=== PATIENT | male | born 1975 | race Two or more races ===

== ENCOUNTER 2020-07-13 04:17 | Day surgery (SDC) | payer BC, OTHER ==
[2020-07-11 17:34] VITALS: BMI 39.1
[2020-07-13] MEDS ORDERED: ROPIVACAINE HCL 0.5% 30ML VIAL ONE (07:03)
[2020-07-13] MEDS ORDERED: LIDOCAINE HCL/PF 2% SDV 5ML VIAL ONE (07:27)
[2020-07-13] MEDS ORDERED: ceFAZolin SODIUM 1 GM VIAL ONE ×2 (07:27→10:45)
[2020-07-13] MEDS ORDERED: EPHEDRINE SULFATE/0.9% NACL/PF 50 MG/10 ML SYRINGE NR ONE (07:27)
[2020-07-13] MEDS ORDERED: LIDOCAINE HCL 2% JELLY (5 ML/TUBE) ONE (07:27)
[2020-07-13] MEDS ORDERED: PROPOFOL 20 ML ONE ×3 (07:27→09:12)
[2020-07-13] MEDS ORDERED: ONDANSETRON 4 MG/2 ML VIAL ONE (07:27)
[2020-07-13] MEDS ORDERED: SUCCINYLCHOLINE CHLORIDE 200 MG/10 ML SYRINGE ONE (07:27)
[2020-07-13] MEDS ORDERED: MIDAZOLAM HCL 2 MG/2 ML SINGLE DOSE VIAL ONE ×4 (07:28→07:29)
--- NOTE | 2020-07-13 08:04 | HP ---
Satellite [facility] - Chief Complaint Chief Complaint: right knee pain - Past Medical History Allergies/Adverse Reactions: Allergies Allergy/AdvReac Type Severity Reaction Status Date / Time No Known Drug Allergies Allergy Verified 07/13/20 06:57 - Current Medications Current Medications: Home Medications Medication Instructions Recorded Albuterol Sulfate Inhaler - 1 puff IH PRN PRN 07/11/20 [Ventolin HFA Inhaler -] Hydrochlorothiazide [Hctz -] 25 mg PO DAILY 07/11/20 Losartan Potassium 50 mg PO DAILY 07/11/20 Nebivolol HCl [Bystolic] 10 mg PO DAILY 07/11/20 Oxycodone HCl/Acetaminophen 1 - 2 tab PO Q6H #30 tab MDD 6 07/13/20 [Percocet 5-325 mg Tablet] Satellite Physical Exam - Physical Examination Vital Signs: Vital Signs Period Temp Pulse Resp BP Sys/Lake Pulse Ox Last 24 Hr 98.0 F 65 16 144/95 97 General Appearance: Well Nourished, Well Developed, Alert & Oriented x3 ENT: Clear Lung: Normal air movement Extremities: Other (right knee- +swelling, + ttp, decr rom, + ovi, + ant draw, + pivot, nvi) Neurological: Intact, Alert, Oriented Satellite Impression/Plan - Impression/Plan Impression: right knee internal derangement Operative Procedure: right knee arthroscopy with ACL reconstruction Date to be Performed: 07/13/20
[2020-07-13] MEDS ORDERED: ceFAZolin 2 GRAM PREMIX BAG IVPB ONE ×2 (08:20→09:50)
[2020-07-13] MEDS ORDERED: ONDANSETRON 4 MG/2 ML VIAL IVPUSH PRN (08:40)
[2020-07-13] MEDS ORDERED: oxyCODONE HCL 5 MG TABLET PO PRN ×2 (08:40)
[2020-07-13] MEDS ORDERED: LACTATED RINGERS SOLUTION 1,000 ML IV SCH (08:45)
--- NOTE | 2020-07-13 09:53 | OP ---
Operative Note - Note: Operative Date: 07/13/20 ([facility]) Pre-Operative Diagnosis: right knee internal derangement Operation: right knee arthroscopy with ACL reconstruction using graftlink allograft Post-Operative Diagnosis: Same as Pre-op Surgeon: Shmuel Douglass Loss Prevention Lead: Moshe Weller Anesthesia: General, Local Specimens Removed: shavings Estimated Blood Loss (mls): 5
[2020-07-13] MEDS ORDERED: CEFAZOLIN 2 GM/D5W 2 GM/50 ML ML IVPB ONE (10:00)
--- NOTE | 2020-07-13 11:09 | SPEC ---
DATE OF OPERATION: 07/13/2020 PREOPERATIVE DIAGNOSIS: Right anterior cruciate ligament tear. POSTOPERATIVE DIAGNOSIS: Right anterior cruciate ligament tear. PROCEDURE: Right anterior cruciate ligament reconstruction with GraftLink. SURGICAL ATTENDING: Shmuel Douglass MD MACHINE III COREMAKER: HOMERO Youngblood ANESTHESIA: Regional and general. CLOSURE: An Arthrex GraftLink for ACL, 3-0 nylon for skin. ESTIMATED BLOOD LOSS: Negligible. COMPLICATIONS: None. CONDITION: To recovery room stable condition. DESCRIPTION OF OPERATIVE PROCEDURE: Patient taken to the operating room on July 13, 2020. Spinal and regional anesthesia was administered by the anesthesiologist. IV Kefzol was administered prophylactically prior to the case. The right lower extremity was prepped and draped in the usual sterile fashion. The superomedial and medial and lateral infrapatellar portal sites were made with a 15 blade followed by a blunt trocar. The outflow portal was superomedially. The scope portal was the inferolateral and the working portal was the inferomedial portal. The scope was placed in the inferolateral portal and up in the suprapatellar pouch. Pouch was visualized to be clean. The medial and lateral gutters were visualized to be clean. The undersurface of the patella and trochlea were visualized to be intact. With valgus stress on the knee, the medial compartment was entered and the medial meniscus was visualized, probed and found to be intact. The medial femoral condyle was run and found to be intact as was the medial tibial plateau. In the figure-4 position, the lateral compartment was entered. The lateral meniscus was visualized, probed, found to be intact. The lateral femoral condyle was run and found to be intact as was the lateral tibial plateau. At 90 degrees, the ACL was visualized and found to be completely torn and shredded with a stump anteriorly. This was debrided using the shaver. A notchplasty was then performed, again insufficient width and height of the notch to perform the procedure. The PCL was visualized to be intact. Using the [id number] guide and an inside-out reaming with a flip cutter, a 10-mm tunnel was made in the posterior aspect of the notch with a depth of approximately 25 mm, preserving the outer cortex. Through this tunnel was passed a shuttle suture made of an Arthrex FiberStick from outside in, exiting the portal. Next, using a tibial guide, a tibial tunnel was made just anterior to the PCL to a depth of about 30 mm inside the tibia, preserving the lateral cortex. This was done by an inside-out technique using a flip cutter as well. Through this tunnel as well was passed a FiberStick suture which was used as a shuttling suture exiting the portal as well. The GraftLink graft was prepared on the back table with a button in place and the appropriate markings on the graft. Two shuttle sutures were used to pull the graft into the knee through the inferomedial portal, one limb up in the femoral tunnel, one limb down the tibial tunnel. The femoral tunnel button was hooked on the lateral cortex. The knee was cycled. The graft was toggled up into a depth of at least 20 mm. With the knee in extension, the tibial graft was toggled using a button as well on the anteromedial cortex. At this time, the knee was cycled through, going from full extension to full flexion with excellent tension of the ACL throughout and good crossing of the PCL. Sutures were cut snug. The graft was ensured to not impede on any part of the notch and throughout the range of motion found to have good tension. The incisions were all closed with 3-0 nylon interrupted horizontal mattress sutures. A sterile pressure dressing and a knee immobilizer were applied. Patient awakened from anesthesia and transferred to recovery in stable condition. Karmen [id number]
[2020-07-13 14:30] VITALS: BP 128/77; PULSE 61; TEMP 98
--- NOTE | 2020-07-14 17:25 | PATH ---
Surgical Pathology Report Patient Name: KVNG DE LA CRUZ Med. Rec. #: [id number] /Age/Gender: 1975 (Age: 45) / M Account: [id number] Location: [facility] SURGICAL Taken: 07/13/2020 Received: 07/13/2020 Reported: 07/14/2020 Physicians: Shmuel Douglass M.D. Specimen(s) Received RIGHT KNEE SHAVINGS Clinical History Tear right knee Final Diagnosis KNEE SHAVINGS, RIGHT, ACL RECONSTRUCTION: FRAGMENTS OF BONE, CARTILAGE, DENSE FIBROCONNECTIVE TISSUE, ADIPOSE TISSUE, AND SYNOVIUM. Electronically Signed María Patel M.D. Gross Description Received in formalin, labeled "right knee shavings," is a 6.0 x 4.5 x 0.7 cm. aggregate of de souza-yellow soft tissue fragments. A sales representative gas service portion is submitted in one cassette. /07/13/2020 saudi07/13/2020
== END 2020-07-13 14:31 | disposition home or self-care (01) ==
LOC: JASU-SURG 04:17
PROVIDERS: ATTEND Orthopaedic Surgery
PROC: 0MRN4JZ Replacement of Right Knee Bursa and Ligament with Synthetic Substitute, Percutaneous Endoscopic Approach (ICD-10-PCS; principal; 2020-07-13 08:00)
DX: S83.511A Sprain of anterior cruciate ligament of right knee, initial encounter (principal); X58.XXXA Exposure to other specified factors, initial encounter; Y93.9 Activity, unspecified; Y92.9 Unspecified place or not applicable; Y99.9 Unspecified external cause status
CPT/HCPCS: 29888; C1713; 88304-TC; 94760; 97116-GP

== ENCOUNTER 2021-07-05 04:41 | Day surgery (SDC) | payer OTHER ==
[2021-07-03 16:32] VITALS: BMI 36.0
[2021-07-05] MEDS ORDERED: BUPIVACAINE HCL/PF 0.5% (5MG/ML) 10 ML VIAL ONE ×2 (11:24→11:36)
[2021-07-05] MEDS ORDERED: LIDOCAINE 1%/EPI 1:100000 (20 ML MULTI DOSE VIAL) ONE (11:24)
[2021-07-05] MEDS ORDERED: PROPOFOL 20 ML ONE ×2 (11:28)
[2021-07-05] MEDS ORDERED: MIDAZOLAM HCL 2 MG/2 ML SINGLE DOSE VIAL ONE (11:28)
[2021-07-05] MEDS ORDERED: LIDOCAINE HCL 1% EPINEPHRINE 1:200,000 30 ML VIAL (PF) ONE (11:35)
[2021-07-05] MEDS ORDERED: DEXAMETHASONE SOD PHOSPHATE 4 MG/1 ML VIAL ONE (12:21)
[2021-07-05] MEDS ORDERED: BUPIVACAINE HCL/PF 0.5% (5MG/ML) 10 ML VIAL IJ ONE (12:27)
[2021-07-05] MEDS ORDERED: KETOROLAC TROMETHAMINE 30 MG/1 ML VIAL ONE (12:28)
[2021-07-05] MEDS ORDERED: ONDANSETRON 4 MG/2 ML VIAL IVPUSH PRN (13:24)
[2021-07-05] MEDS ORDERED: oxyCODONE HCL 5 MG TABLET PO PRN (13:24)
[2021-07-05] MEDS ORDERED: LACTATED RINGERS SOLUTION 1,000 ML IV SCH (13:30)
[2021-07-05 15:37] VITALS: BP 107/64; PULSE 62; TEMP 97.4
== END 2021-07-05 15:50 | disposition home or self-care (01) ==
LOC: JASU-SURG 04:41
PROVIDERS: ATTEND Orthopaedic Surgery
PROC: 0SBC4ZZ Excision of Right Knee Joint, Percutaneous Endoscopic Approach (ICD-10-PCS; principal; 2021-07-05 12:30)
DX: M23.321 Other meniscus derangements, posterior horn of medial meniscus, right knee (principal); M23.203 Derangement of unspecified medial meniscus due to old tear or injury, right knee
CPT/HCPCS: 94760

== ENCOUNTER 2024-05-01 06:06 | Day surgery (SDC) | payer BC, OTHER ==
[2024-04-23 11:03] VITALS: BMI 40.7
[2024-05-01 06:52] VITALS: BP 131/87; PULSE 74; RESP 16; TEMP 97.1
== END 2024-05-01 09:00 | disposition home or self-care (01) ==
LOC: FASUSAT 06:06 → FM/S 06:06 → UNDOADMIN 06:06 → FASUSAT 09:00 → EDSTATUS 10:00
PROVIDERS: ATTEND Surgery
PROC: 0DB64Z3 Excision of Stomach, Percutaneous Endoscopic Approach, Vertical (ICD-10-PCS; principal; 2024-05-01)
DX: Z53.8 Procedure and treatment not carried out for other reasons (principal); E66.01 Morbid (severe) obesity due to excess calories; Z68.41 Body mass index [BMI] 40.0-44.9, adult

== ENCOUNTER 2024-05-08 06:18 | Inpatient (IN) | payer BC, OTHER ==
[2024-05-04 14:27] VITALS: BMI 40.7
[2024-05-08] MEDS ORDERED: BUPIVACAINE HCL/PF 0.25% (2.5MG/ML) 10 ML VIAL ONE (07:23)
[2024-05-08] MEDS ORDERED: PROPOFOL 20 ML ONE (07:50)
[2024-05-08] MEDS ORDERED: MIDAZOLAM HCL 2 MG/2 ML SINGLE DOSE VIAL ONE (07:51)
[2024-05-08] MEDS ORDERED: ONDANSETRON 4 MG/2 ML VIAL ONE (08:32)
[2024-05-08] MEDS ORDERED: DEXAMETHASONE SOD PHOSPHATE 4 MG/1 ML VIAL ONE (08:32)
[2024-05-08] MEDS ORDERED: ceFAZolin SODIUM 1 GM VIAL ONE (08:32)
[2024-05-08] MEDS ORDERED: NEOSTIGMINE METHYLSULFATE 0.5 MG/1 ML - 10 ML MDV ONE (10:33)
[2024-05-08] MEDS ORDERED: ACETAMINOPHEN INJECTION 100 ML IVPB ONE (10:50)
[2024-05-08] MEDS ORDERED: HYDROmorphone HCl 2 MG/ML VIAL IVPB PRN (11:14)
[2024-05-08] MEDS ORDERED: HYDROmorphone HCL/PF 1 MG/ML VIAL IVPB PRN (11:15)
[2024-05-08] MEDS ORDERED: ONDANSETRON 4 MG/2 ML VIAL IVPB PRN (11:16)
[2024-05-08] MEDS ORDERED: ONDANSETRON 4 MG/2 ML VIAL IVPUSH PRN (11:21)
[2024-05-08] MEDS ORDERED: HYDROmorphone HCL/PF 1 MG/ML VIAL ONE (11:29)
[2024-05-08] MEDS ORDERED: LACTATED RINGERS SOLUTION 1,000 ML IV SCH (11:30)
[2024-05-08 11:31] LABS: HIV INTERPRETATION NEGATIVE (NEGATIVE)
[2024-05-08] MEDS: HYDROmorphone HCl 2 MG/ML VIAL IVPB PRN (11:35)
[2024-05-08] MEDS: METOCLOPRAMIDE HCL INJECTION 10 MG/2 ML VIAL IVPB SCH (11:45)
[2024-05-08] MEDS: CEFAZOLIN SODIUM 2 GM in DEXTROSE 5%-WATER 100 ML IVPB ONE (13:05)
[2024-05-08 13:15] LABS: HEMATOCRIT 47.8 % (35.4-49); HEMOGLOBIN 15.6 G/dL (11.7-16.9); MCH 31.4 pg (25.7-33.7); MCHC 32.6 g/dl (32.0-35.9); MEAN CELL VOLUME 96.2 fl (80-96); MEAN PLT VOLUME 8.3 fl (7.5-11.1); PLATELET COUNT 205.6 10^3/uL (134-434); RBC 4.97 10^6/uL (4.00-5.60); RDW 12.7 % (11.9-15.9); WHITE BLOOD COUNT 18.1 10^3/uL (4.0-10.8)
[2024-05-08 13:27] LABS: ALBUMIN 4.5 g/dl (3.4-5.0); BILIRUBIN,TOTAL 0.7 mg/dl (0.2-1); CALCIUM 9.5 mg/dl (8.5-10.1); CREATININE 1.1 mg/dl (0.6-1.3); POTASSIUM 4.1 mmol/L (3.5-5.1); TOT PROT 7.4 g/dl (6.4-8.2)
[2024-05-08] MEDS: SODIUM CHLORIDE 1,000 ML IV SCH (17:41)
[2024-05-08 20:53] LABS: HEMATOCRIT 48.3 % (35.4-49); HEMOGLOBIN 15.9 G/dL (11.7-16.9); MCH 31.3 pg (25.7-33.7); MCHC 32.9 g/dl (32.0-35.9); MEAN CELL VOLUME 95.1 fl (80-96); MEAN PLT VOLUME 7.7 fl (7.5-11.1); PLATELET COUNT 195.4 10^3/uL (134-434); RBC 5.08 10^6/uL (4.00-5.60); RDW 12.7 % (11.9-15.9); WHITE BLOOD COUNT 18.3 10^3/uL (4.0-10.8)
[2024-05-08] MEDS: FAMOTIDINE 20 MG/50 ML IVPB 20 MG/50 ML MG IVPB SCH (21:20)
[2024-05-08] MEDS: CARVEDILOL 6.25 MG TABLET (FP) PO SCH (21:20)
[2024-05-08 21:53] LABS: ALBUMIN 4.6 g/dl (3.4-5.0); ALK PHOS 71 U/L (45-117); ANION GAP 11 mmol/L (4-13); BILIRUBIN,TOTAL 0.7 mg/dl (0.2-1); CALCIUM 9.4 mg/dl (8.5-10.1); CHLORIDE 100 mmol/L (98-107); CO2 23 mmol/L (21-32); CREATININE 0.8 mg/dl (0.6-1.3); GLUCOSE,RANDOM 156 mg/dl (74-106); POTASSIUM 3.8 mmol/L (3.5-5.1); SGOT/AST 33 U/L (15-37); SGPT/ALT 47 U/L (7-52); SODIUM 134 mmol/L (136-145); TOT PROT 7.7 g/dl (6.4-8.2)
[2024-05-09 08:36] LABS: HEMATOCRIT 49.4 % (35.4-49); MCH 30.9 pg (25.7-33.7); MCHC 32.4 g/dl (32.0-35.9); MEAN CELL VOLUME 95.2 fl (80-96); MEAN PLT VOLUME 8.4 fl (7.5-11.1); PLATELET COUNT 216.4 10^3/uL (134-434); RBC 5.19 10^6/uL (4.00-5.60); RDW 12.7 % (11.9-15.9); WHITE BLOOD COUNT 23.7 10^3/uL (4.0-10.8)
[2024-05-09 09:01] LABS: ALBUMIN 4.7 g/dl (3.4-5.0); CALCIUM 9.9 mg/dl (8.5-10.1); CREATININE 0.8 mg/dl (0.6-1.3); POTASSIUM 3.7 mmol/L (3.5-5.1); TOT PROT 7.8 g/dl (6.4-8.2)
[2024-05-09] MEDS: amLODIPine BESYLATE 10 MG TABLET (FP) PO SCH (09:45)
[2024-05-09 09:53] VITALS: BP 149/96; PULSE 111; RESP 15; TEMP 98
[2024-05-09] MEDS ORDERED: oxyCODONE HCL 5 MG TABLET PO PRN (10:58)
[2024-05-09] MEDS ORDERED: ACETAMINOPHEN 325 MG TABLET (FP) PO PRN (10:58)
[2024-05-09] MEDS ORDERED: SODIUM CHLORIDE 1,000 ML IV SCH (11:00)
[2024-05-09] MEDS: ENOXAPARIN NA (PORCINE) 40 MG/0.4 ML DISP.SYRIN SQ SCH (12:31)
== END 2024-05-09 13:40 | disposition home or self-care (01) | DRG 621 ==
LOC: FM/S 06:18
PROVIDERS: ADMIT Surgery; ATTEND Surgery
PROC: 0DNW4ZZ Release Peritoneum, Percutaneous Endoscopic Approach (ICD-10-PCS; 2024-05-08)
PROC: 0FB24ZX Excision of Left Lobe Liver, Percutaneous Endoscopic Approach, Diagnostic (ICD-10-PCS; 2024-05-08)
PROC: 0DB64Z3 Excision of Stomach, Percutaneous Endoscopic Approach, Vertical (ICD-10-PCS; principal; 2024-05-08 08:36)
DX: E66.01 Morbid (severe) obesity due to excess calories (principal); Z68.41 Body mass index [BMI] 40.0-44.9, adult; I10 Essential (primary) hypertension; G47.33 Obstructive sleep apnea (adult) (pediatric); K66.0 Peritoneal adhesions (postprocedural) (postinfection); R16.0 Hepatomegaly, not elsewhere classified
CPT/HCPCS: 36415; 74240-TC-FY; 80053; 83690; 85027; 86850; 86900; 86901; 87389; 88307-TC; 94760; J0131

== ENCOUNTER 2025-07-19 09:39 | Observation (INO) | payer BC, OTHER ==
[2025-07-19 09:44] VITALS: BMI 34.4
[2025-07-19] MEDS ORDERED: METHOCARBAMOL 500 MG TABLET ONE (11:22)
[2025-07-19] MEDS ORDERED: KETOROLAC TROMETHAMINE 10 MG TABLET PO ONE (11:22)
[2025-07-19] MEDS ORDERED: ACETAMINOPHEN 500 MG TABLET (FP) ONE (11:23)
[2025-07-19] MEDS ORDERED: LIDOCAINE 5% TOPICAL PATCH ONE (11:23)
[2025-07-19] MEDS: ACETAMINOPHEN 500 MG TABLET (FP) PO ONE (11:27)
[2025-07-19] MEDS: KETOROLAC TROMETHAMINE 10 MG TABLET PO ONE (11:27)
[2025-07-19] MEDS: LIDOCAINE 5% TOPICAL PATCH TP ONE (11:27)
[2025-07-19] MEDS: METHOCARBAMOL 500 MG TABLET PO ONE (11:27)
[2025-07-19] MEDS ORDERED: DEXAMETHASONE SOD PHOSPHATE 10 MG/1 ML VIAL ONE (11:29)
[2025-07-19] MEDS: DEXAMETHASONE SOD PHOSPHATE 10 MG/1 ML VIAL IM ONE (11:33)
[2025-07-19] MEDS ORDERED: HYDROmorphone HCL CARPU-JECT 2 MG/1 ML DISP.SYRIN ONE (12:49)
[2025-07-19 13:07] LABS: ABSOLUTE IMMATURE GRANULOCYTES 0.04 x10^3/uL (0.0-0.031); BASOPHILS # 0.03 x10^3/uL (0.01-0.08); EOSINOPHIL % 1.2 % (0.8-7.0); EOSINOPHILS # 0.12 x10^3/uL (0.04-0.54); MCHC 32.7 g/dl (32.3-36.5); MEAN CELL VOLUME 93.8 fl (79.0-92.2); MEAN PLT VOLUME 9.2 fl (9.4-12.4); MONOCYTE # 0.52 x10^3/uL (0.30-0.82); MONOCYTE % 5.1 % (5.3-12.2); RDW 11.5 % (12.2-16.1)
[2025-07-19 13:15] LABS: INR 1.24 (0.83-1.09); PROTHROMBIN TIME (PATIENT) 13.5 SEC (9.7-13.0)
[2025-07-19 13:17] LABS: ACTIVATED PTT 30.8 SECONDS (25.2-36.5)
[2025-07-19 14:28] LABS: GLUCOSE,RANDOM 102.0 mg/dL (74-106)
[2025-07-19 14:29] LABS: TOT PROT 7.2 g/dl (6.4-8.2)
[2025-07-19 14:30] LABS: CO2 26.0 mmol/L (21-32)
[2025-07-19 14:32] LABS: ALK PHOS 59.0 U/L (40-150)
[2025-07-19 14:34] LABS: SGOT/AST 20.0 U/L (5-34); SGPT/ALT 27.0 U/L (0-55)
[2025-07-19 14:54] LABS: HCV DIAGNOSTIC IN-HOUSE W/RFLX NON-REACTIVE (NONREACTIVE)
[2025-07-19 15:06] LABS: CREATININE 0.8 mg/dL (0.55-1.3)
[2025-07-19 18:05] LABS: HIV INTERPRETATION NEGATIVE (NEGATIVE)
[2025-07-19] MEDS ORDERED: ALBUTEROL SO4 HFA INHALER IH PRN (18:42)
[2025-07-19] MEDS: LIDOCAINE PATCH REMOVAL MC ONE (21:59)
[2025-07-19] MEDS: LIDOCAINE PATCH REMOVAL MC SCH (22:00)
[2025-07-20 07:21] LABS: MCHC 32.5 g/dl (32.3-36.5); MEAN CELL VOLUME 95.2 fl (79.0-92.2); MEAN PLT VOLUME 9.6 fl (9.4-12.4); RDW 11.1 % (12.2-16.1)
[2025-07-20 07:50] LABS: CO2 25.0 mmol/L (21-32)
[2025-07-20 07:52] LABS: GLUCOSE,RANDOM 119.0 mg/dL (74-106)
[2025-07-20 07:54] LABS: CREATININE 0.73 mg/dL (0.55-1.3)
[2025-07-20] MEDS ORDERED: ASPIRIN 81 MG CHEWABLE TABLETS PO SCH (10:00)
[2025-07-20] MEDS: LIDOCAINE 5% TOPICAL PATCH TP SCH (10:13)
[2025-07-20] MEDS: ROSUVASTATIN CA 10 MG TABLET PO SCH (10:14)
[2025-07-20] MEDS: amLODIPine BESYLATE 10 MG TABLET (FP) PO SCH (10:14)
[2025-07-20] MEDS: ASPIRIN COATED 81 MG TABLET.EC PO SCH (10:14)
[2025-07-20] MEDS: PANTOPRAZOLE 40 MG TABLET PO SCH (10:14)
[2025-07-20] MEDS: HYDROCHLOROTHIAZIDE 25 MG TABLET (FP) PO SCH (10:15)
[2025-07-21] MEDS: MAG HYDROX/AL HYDROX/SIMETH 30 ML UNIT-DOSE CUP PO ONE (00:37)
[2025-07-21 12:16] VITALS: RESP 20; TEMP 98
[2025-07-21 19:24] VITALS: BP 128/86; PULSE 83
== END 2025-07-21 19:26 | disposition home or self-care (01) ==
LOC: JER 09:39 → INTOOBSV 12:20 → UNDOADMOB 12:20 → JERBED 12:20 → J8W 16:44 → JERBED 16:44 → J8W 18:34
PROVIDERS: ADMIT Family Medicine; ATTEND Family Medicine
PROC: 3E023GC Introduction of Other Therapeutic Substance into Muscle, Percutaneous Approach (ICD-10-PCS; principal; 2025-07-19)
PROC: 3E033NZ Introduction of Analgesics, Hypnotics, Sedatives into Peripheral Vein, Percutaneous Approach (ICD-10-PCS; 2025-07-19)
DX: M51.27 Other intervertebral disc displacement, lumbosacral region (principal); M51.86 Other intervertebral disc disorders, lumbar region; M50.80 Other cervical disc disorders, unspecified cervical region; I10 Essential (primary) hypertension; M48.00 Spinal stenosis, site unspecified
CPT/HCPCS: 36415; 72131-TC; 80048; 80053; 83735; 85025; 85610; 85730; 86803; 87389; 93005; 93010; 97116-GP; 97161-GP; 99285-25; G0378; J1100

== ENCOUNTER 2025-08-10 06:03 | Inpatient (IN) | payer BC, OTHER ==
[2025-08-10] MEDS ORDERED: GENTAMICIN SO4 80 MG/2 ML VIAL ONE ×2 (07:06→14:06)
[2025-08-10] MEDS ORDERED: THROMBIN (BOVINE) 20,000 UNIT VIAL TP ONE (07:06)
[2025-08-10] MEDS ORDERED: BUPIVACAINE HCL/PF 0.5% (5MG/ML) 10 ML VIAL ONE (07:07)
[2025-08-10] MEDS ORDERED: BUPIVACAINE LIPOSOME/PF (EXPAREL) 266 MG/20 ML VIAL ONE (07:07)
[2025-08-10] MEDS ORDERED: LIDOCAINE 1%/EPI 1:100000 (20 ML MULTI DOSE VIAL) ONE (07:07)
[2025-08-10] MEDS ORDERED: VANCOMYCIN 1,000 MG VIAL (RESTRICTED TO ID ONLY) ONE ×2 (07:41→09:47)
[2025-08-10] MEDS ORDERED: SEVOFLURANE 250 ML BTL ONE ×2 (09:42→09:45)
[2025-08-10] MEDS ORDERED: MIDAZOLAM HCL 2 MG/2 ML SINGLE DOSE VIAL ONE (09:43)
[2025-08-10] MEDS ORDERED: PROPOFOL 40 ML ONE (09:43)
[2025-08-10] MEDS ORDERED: ROCURONIUM BROMIDE 50 MG/5 ML SYRINGE ONE ×2 (09:43→13:38)
[2025-08-10] MEDS ORDERED: SUGAMMADEX SODIUM 200 MG/2 ML VIAL ONE ×2 (09:47→15:32)
[2025-08-10] MEDS ORDERED: ONDANSETRON 4 MG/2 ML VIAL ONE (09:47)
[2025-08-10] MEDS ORDERED: DEXAMETHASONE SOD PHOSPHATE 4 MG/1 ML VIAL ONE ×2 (09:47→11:09)
[2025-08-10] MEDS: VANCOMYCIN 1,000 MG VIAL (RESTRICTED TO ID ONLY) IVPB ONE ×2 (10:20→11:54)
[2025-08-10] MEDS ORDERED: ONDANSETRON 4 MG/2 ML VIAL IVPUSH PRN (10:28)
[2025-08-10] MEDS ORDERED: LACTATED RINGERS SOLUTION 1,000 ML IV SCH (10:30)
[2025-08-10] MEDS ORDERED: LIDOCAINE HCL 2% 100 MG/5 ML DISP.SYRIN ONE (11:08)
[2025-08-10] MEDS ORDERED: TRANEXAMIC ACID 1000 MG/10 ML VIAL ONE ×2 (11:22→14:49)
[2025-08-10] MEDS: LIDOCAINE 1%/EPI 1:100000 (20 ML MULTI DOSE VIAL) IJ ONE (11:41)
[2025-08-10] MEDS: THROMBIN (BOVINE) 5,000 UNIT VIAL TP ONE (11:52)
[2025-08-10] MEDS: GENTAMICIN SO4 80 MG/2 ML VIAL IVPB ONE (11:53)
[2025-08-10] MEDS ORDERED: LABETALOL HCL 20 MG/4 ML VIAL ONE (13:07)
[2025-08-10] MEDS: BUPIVACAINE HCL/PF 0.5% (5MG/ML) 10 ML VIAL IJ ONE ×2 (14:40)
[2025-08-10] MEDS: BUPIVACAINE LIPOSOME/PF (EXPAREL) 266 MG/20 ML VIAL NR ONE ×2 (14:40)
[2025-08-10] MEDS ORDERED: diphenhydrAMINE HCL 25 MG CAPSULE (FP) PO PRN ×2 (14:56→16:05)
[2025-08-10] MEDS ORDERED: LACTATED RINGERS SOLUTION 1,000 ML/1,000 ML INFUS.BAG IV SCH (15:00)
[2025-08-10] MEDS: LACTATED RINGERS SOLUTION 1,000 ML/1,000 ML INFUS.BAG IV SCH (16:28)
[2025-08-10] MEDS: CEFAZOLIN 1 GM in DEXTROSE 5%-WATER - 50 ML IVPB SCH (17:52)
[2025-08-10] MEDS ORDERED: CEFAZOLIN 1 GM in DEXTROSE 5%-WATER - 50 ML IVPB SCH (18:00)
[2025-08-10] MEDS: HEPARIN NA (PORCINE) 5,000 UNITS/ML 1ML VIAL SQ SCH ×2 (18:12→21:24)
[2025-08-10] MEDS: CARVEDILOL 12.5 MG TABLET (FP) PO SCH (21:25)
[2025-08-10] MEDS: DOCUSATE SODIUM 100 MG CAPSULE (FP) PO SCH (21:25)
[2025-08-10] MEDS: ROSUVASTATIN CA 10 MG TABLET PO SCH (21:26)
[2025-08-10] MEDS ORDERED: DOCUSATE SODIUM 100 MG CAPSULE (FP) PO SCH (22:00)
[2025-08-11 07:09] LABS: MCHC 32.6 g/dl (32.3-36.5); MEAN CELL VOLUME 96.8 fl (79.0-92.2); MEAN PLT VOLUME 9.8 fl (9.4-12.4); RDW 11.1 % (12.2-16.1)
[2025-08-11 07:31] LABS: GLUCOSE,RANDOM 103.0 mg/dL (74-106)
[2025-08-11 07:33] LABS: CO2 27.0 mmol/L (21-32)
[2025-08-11 07:37] LABS: CREATININE 0.63 mg/dL (0.55-1.3)
[2025-08-11] MEDS ORDERED: FOLIC ACID 1 MG TABLET (FP) PO SCH (10:00)
[2025-08-11] MEDS ORDERED: FERROUS SO4 325 MG TABLET (FP) PO SCH (10:00)
[2025-08-11] MEDS: FOLIC ACID 1 MG TABLET (FP) PO SCH (10:59)
[2025-08-11] MEDS: ASPIRIN COATED 81 MG TABLET.EC PO SCH (10:59)
[2025-08-11] MEDS: LISINOPRIL 5 MG TABLET PO SCH (10:59)
[2025-08-11] MEDS: PANTOPRAZOLE 40 MG TABLET PO SCH (11:00)
[2025-08-11] MEDS: FERROUS SO4 325 MG TABLET (FP) PO SCH (11:03)
[2025-08-11] MEDS: HYDROCHLOROTHIAZIDE 25 MG TABLET (FP) PO SCH (11:03)
[2025-08-11] MEDS: amLODIPine BESYLATE 10 MG TABLET (FP) PO SCH (11:04)
[2025-08-12 11:24] LABS: ABSOLUTE IMMATURE GRANULOCYTES 0.10 x10^3/uL (0.0-0.031); BASOPHILS # 0.04 x10^3/uL (0.01-0.08); EOSINOPHIL % 0.1 % (0.8-7.0); EOSINOPHILS # 0.02 x10^3/uL (0.04-0.54); MCHC 32.6 g/dl (32.3-36.5); MEAN CELL VOLUME 97.5 fl (79.0-92.2); MEAN PLT VOLUME 9.6 fl (9.4-12.4); MONOCYTE # 1.63 x10^3/uL (0.30-0.82); MONOCYTE % 10.6 % (5.3-12.2); RDW 11.4 % (12.2-16.1)
[2025-08-12 11:43] LABS: GLUCOSE,RANDOM 90.0 mg/dL (74-106)
[2025-08-12 11:44] LABS: CO2 34.0 mmol/L (21-32)
[2025-08-12 11:48] LABS: CREATININE 0.78 mg/dL (0.55-1.3)
[2025-08-13] MEDS: POTASSIUM CHLORIDE ORAL LIQUID 20 MEQ/15 ML PO ONE (14:50)
[2025-08-14 08:58] LABS: ABSOLUTE IMMATURE GRANULOCYTES 0.10 x10^3/uL (0.0-0.031); BASOPHILS # 0.03 x10^3/uL (0.01-0.08); EOSINOPHIL % 1.2 % (0.8-7.0); EOSINOPHILS # 0.19 x10^3/uL (0.04-0.54); MCHC 32.7 g/dl (32.3-36.5); MEAN CELL VOLUME 96.4 fl (79.0-92.2); MEAN PLT VOLUME 9.8 fl (9.4-12.4); MONOCYTE # 1.20 x10^3/uL (0.30-0.82); MONOCYTE % 7.7 % (5.3-12.2); RDW 11.4 % (12.2-16.1)
[2025-08-14 09:37] LABS: GLUCOSE,RANDOM 97.0 mg/dL (74-106)
[2025-08-14 09:38] LABS: CO2 28.0 mmol/L (21-32)
[2025-08-14 09:42] LABS: CREATININE 0.87 mg/dL (0.55-1.3)
[2025-08-14] MEDS: POTASSIUM CHLORIDE ORAL LIQUID 20 MEQ/15 ML PO ONE (13:54)
[2025-08-14 14:12] VITALS: RESP 18
[2025-08-15] MEDS: MELATONIN 5 MG TABLETS PO ONE (02:16)
[2025-08-15 08:01] LABS: GLUCOSE,RANDOM 100.0 mg/dL (74-106)
[2025-08-15 08:03] LABS: CO2 32.0 mmol/L (21-32)
[2025-08-15 08:07] LABS: CREATININE 0.88 mg/dL (0.55-1.3)
[2025-08-15 10:23] LABS: ABSOLUTE IMMATURE GRANULOCYTES 0.11 x10^3/uL (0.0-0.031); BASOPHILS # 0.03 x10^3/uL (0.01-0.08); EOSINOPHIL % 2.4 % (0.8-7.0); EOSINOPHILS # 0.29 x10^3/uL (0.04-0.54); MCHC 32.1 g/dl (32.3-36.5); MEAN CELL VOLUME 97.1 fl (79.0-92.2); MEAN PLT VOLUME 10.2 fl (9.4-12.4); MONOCYTE # 1.24 x10^3/uL (0.30-0.82); MONOCYTE % 10.2 % (5.3-12.2); RDW 11.4 % (12.2-16.1)
[2025-08-16 07:36] VITALS: TEMP 98.1
[2025-08-16] MEDS: POLYETHYLENE GLYCOL (HEALTHYLAX) 3350 17 GM PACKET PO SCH (10:07)
[2025-08-16 10:46] VITALS: BP 121/88; PULSE 100
== END 2025-08-16 14:32 | disposition home health service (06) | DRG 428 ==
LOC: J2C 06:03 → JASUSAT 06:03 → UNDOADMIN 06:03 → EDSTATUS 08:00 → J8W 17:30 → JASUSAT 17:31 → J8W 17:31
PROVIDERS: ADMIT Neurological Surgery; ATTEND Neurological Surgery
PROC: 0SG0071 Fusion of Lumbar Vertebral Joint with Autologous Tissue Substitute, Posterior Approach, Posterior Column, Open Approach (ICD-10-PCS; 2025-08-10)
PROC: 0SG30AJ Fusion of Lumbosacral Joint with Interbody Fusion Device, Posterior Approach, Anterior Column, Open Approach (ICD-10-PCS; 2025-08-10)
PROC: 0SG3071 Fusion of Lumbosacral Joint with Autologous Tissue Substitute, Posterior Approach, Posterior Column, Open Approach (ICD-10-PCS; 2025-08-10)
PROC: 01NB0ZZ Release Lumbar Nerve, Open Approach (ICD-10-PCS; 2025-08-10)
PROC: 0SB20ZZ Excision of Lumbar Vertebral Disc, Open Approach (ICD-10-PCS; 2025-08-10)
PROC: 0SB40ZZ Excision of Lumbosacral Disc, Open Approach (ICD-10-PCS; 2025-08-10)
PROC: 01NA0ZZ Release Lumbosacral Plexus, Open Approach (ICD-10-PCS; 2025-08-10)
PROC: 4A11X4G Monitoring of Peripheral Nervous Electrical Activity, Intraoperative, External Approach (ICD-10-PCS; 2025-08-10)
PROC: 0SG00AJ Fusion of Lumbar Vertebral Joint with Interbody Fusion Device, Posterior Approach, Anterior Column, Open Approach (ICD-10-PCS; principal; 2025-08-10 08:00)
DX: M47.896 Other spondylosis, lumbar region (principal); M51.26 Other intervertebral disc displacement, lumbar region; M48.061 Spinal stenosis, lumbar region without neurogenic claudication; M48.07 Spinal stenosis, lumbosacral region; M51.27 Other intervertebral disc displacement, lumbosacral region
CPT/HCPCS: 36415; 72131-TC; 76000-TC-FY; 80048; 85025; 85027; 86850; 86900; 86901; 94010; 94760; 97116-GP; 97161-GP; C1713; C1789; C1889; J0666